=== PATIENT | male | born 1990 | race Caucasian/White ===

== ENCOUNTER 2019-12-27 03:52 | Emergency (ER) | payer SELFPAY ==
[~2019-12-27] VITALS: Ht 185.4 cm; Wt 104.3 kg
[2019-12-27 03:52] VITALS: BP 129/90
--- NOTE | 2019-12-27 03:52 | NUR ---
PT BIB [facility], PREBOOK. TAKEN TO CHAIR C
--- NOTE | 2019-12-27 03:53 | NUR ---
Dr. Greco examining patient.
[2019-12-27 04:06] VITALS: BP 129/90
--- NOTE | 2019-12-27 04:06 | NUR ---
PATIENT BIB [facility] [facility]. PATIENT EXAMINED BY DR. CABALLERO. PATIENT MEDICALLY CLEARED AND RELEASED IN CUSTODY IN STABLE CONDITION. ORIGINAL PRE-BOOK FORM GIVEN TO OFFICER ELOISE.
== END 2019-12-27 04:06 ==
LOC: MED 03:52
DX: Z04.1 Encounter for examination and observation following transport accident (principal); Z02.89 Encounter for other administrative examinations; V89.2XXA Person injured in unspecified motor-vehicle accident, traffic, initial encounter; Y93.89 Activity, other specified; Y92.89 Other specified places as the place of occurrence of the external cause; Y99.8 Other external cause status
CPT/HCPCS: 99283